=== PATIENT | male | born 1960 | race Caucasian/White ===

== ENCOUNTER 2016-11-20 10:03 | Inpatient (IN) | payer OTHER ==
--- NOTE | 2016-11-20 10:12 | EDPHY ---
H & P Stated Complaint: "I have PNA x 3 wks" Under tx;states fever last night;prod cough HPI/ROS: HPI CHIEF COMPLAINT: "I have worsening pneumonia" HISTORY OF PRESENT ILLNESS: This patient very pleasant 56-year-old male tells me that he has no significant medical or surgical history presents to the emergency room with worsening cough and shortness of breath and fever. Patient tells me he has been sick for 3 weeks with pneumonia. He was seen at [facility] diagnosed with pneumonia 2 weeks ago placed on azithromycin which he has completed the course of antibiotics and was also placed on Levaquin at that time 5:00 a.m. mg he completed that course of antibiotics and then was now put on Levaquin 750 mg daily. He tells me that last night around 8 o'clock he had a temperature of a 103degrees he has had cough with productive yellow and bloody sputum, also tells me that this morning woke up with a temperature of a 100.0 degrees. He did not take anything for his fever. Does tell me that he has worsening cough shortness of breath and is feeling worse with nausea, vomiting his breakfast this morning and diarrhea. Past Medical History: No significant medical history Past Surgical History: No significant surgical history Social History: denies daily use of drugs alcohol tobacco products, retired, [place] Family History: Noncontributory ROS REVIEW OF SYSTEMS: A comprehensive 10 point review of systems is otherwise negative aside from elements mentioned in the history of present illness. Exam Constitutional appears well nontoxic, triage nursing summary reviewed, vital signs reviewed, awake/alert. Eyes normal conjunctivae and sclera, EOMI, PERRLA. HENT normal inspection, atraumatic, moist mucus membranes, no epistaxis, neck supple/ no meningismus, no raccoon eyes. Respiratory I do not appreciate any significant abnormal lung sounds on exam, good air movement, normal cough, clear to auscultation bilaterally, normal breath sounds, no respiratory distress, no wheezing. Cardiovascular rate normal, regular rhythm, no murmur, no edema, distal pulses normal. Gastrointestinal soft, non-tender, no rebound, no guarding, normal bowel sounds, no distension, no pulsatile mass. Genitourinary no CVA tenderness. Musculoskeletal no midline vertebral tenderness, full range of motion, no calf swelling, no tenderness of extremities, no meningismus, good pulses, neurovascularly intact. Skin pink, warm, & dry, no rash, skin atraumatic. Neurologic awake, alert and oriented x 3, AAOx3, moves all 4 extremities equally, motor intact, sensory intact, CN II-XII intact, normal cerebellar, normal vision, normal speech. Psychiatric normal mood/affect. Heme/Lymph/Immune no lymphadenopathy. Differential Diagnosis: Includes but is not limited to and in no particular order: Bronchitis, viral pneumonia, bacterial pneumonia, influenza, pulmonary embolism, CHF Medical Decision Making: Plan for this patient in a IV established obtain blood work including blood cultures, influenza, patient be gently hydrated with normal saline 1 L, check inflammatory markers, patient had a CT scan angiogram of his chest for 3 weeks of worsening shortness of breath, productive cough, and bloody sputum. Need to rule out pulmonary embolism versus pneumonia versus atypical infection versus mass. Re-evaluation: EKG interpretation by me on record in [facility] system. Impression time of EKG 10:24 a.m., sinus rhythm rate of 84 no acute ischemic changes specifically no ST elevation, ST depression or significant T-wave abnormalities. Intervals appropriate. ED x-ray: Chest one view: This patient has a right lower lobe pneumonia. CT scan of the angiogram chest with IV contrast. The results of the study are multiple pulmonary emboli, segmental and subsegmental, also right lower lobe pneumonia dense infiltrate. The study was read by Dr. Rodriguez I viewed the images myself on the PACS system. 1236: Re-examination this time this patient remained stable. No acute distress. Patient be admitted for pneumonia, bilateral pulmonary emboli. I have given him Lovenox 1 bharat per kg, IV vancomycin and IV Zosyn, blood cultures have been pulled. IV fluids. He is hemodynamically stable and safe for admission to the floor med surge with pulse ox. Patient has been accepted by Dr. Woo. Source: Patient - Personal History Current Tetanus Diphtheria and Acellular Pertussis (TDAP): Yes - Medical/Surgical History Other PMH: migraines - Social History Smoking Status: Former smoker Constitutional: Initial Vital Signs Temperature (C) 36.6 C 11/20/16 10:05 Heart Rate 88 11/20/16 10:05 Respiratory Rate 18 11/20/16 10:05 Blood Pressure 115/58 L 11/20/16 10:05 O2 Sat (%) 95 11/20/16 10:05 O2 Delivery Mode Room Air Allergies/Adverse Reactions: No Known Allergies Allergy (Unverified 11/20/16 10:05) Home Medications: Medication Instructions Recorded AZITHROMYCIN [Z-PACK] 250 mg PO DAILY 11/20/16 Divalproex ER [Depakote ER 500 MG 500 mg PO 11/20/16 (*)] levOFLOXACIN [levAQUIN (*)] 500 mg PO 11/20/16 Medical Decision Making - Data Points Laboratory Results: Laboratory Results 11/20/16 10:26 11/20/16 10:26 11/20/16 11/20/16 11/20/16 10:30 10:26 10:26 WBC RBC Hgb Hct MCV MCH MCHC RDW Plt Count MPV Neut % (Auto) Lymph % (Auto) Starke % (Auto) Eos % (Auto) Baso % (Auto) Nucleat RBC Rel Count Absolute Neuts (auto) Absolute Lymphs (auto) Absolute Monos (auto) Absolute Eos (auto) Absolute Basos (auto) Absolute Nucleated RBC Immature Gran % Immature Gran # PT 16.2 SEC H SEC (12.0-15.0) INR 1.30 H (0.83-1.16) APTT 28.6 SEC SEC (23.0-38.0) D-Dimer > 20.00 ug/mLFEU H ug/mLFEU (0.00-0.50) VBG Lactic Acid Sodium 135 mEq/L mEq/L (134-144) Potassium 4.4 mEq/L mEq/L (3.5-5.2) Chloride 104 mEq/L mEq/L (97-110) Carbon Dioxide 20 mEq/l L mEq/l (22-31) Anion Gap 11 mEq/L mEq/L (8-16) BUN 11 mg/dL mg/dL (7-23) Creatinine 1.0 mg/dL mg/dL (0.7-1.3) Estimated GFR > 60 Glucose 96 mg/dL mg/dL (70-100) Calcium 8.9 mg/dL mg/dL (8.5-10.4) Total Bilirubin 0.7 mg/dL mg/dL (0.1-1.4) Conjugated Bilirubin 0.4 mg/dL mg/dL (0.0-0.5) Unconjugated Bilirubin 0.3 mg/dL mg/dL (0.0-1.1) AST 43 IU/L IU/L (17-59) ALT 42 IU/L IU/L (21-72) Alkaline Phosphatase 61 IU/L IU/L (38-126) Troponin I < 0.012 ng/mL ng/mL (0-0.034) NT-Pro-B Natriuret Pep 124 pg/mL pg/mL (0-125) Total Protein 6.9 g/dL g/dL (6.3-8.2) Albumin 3.7 g/dL g/dL (3.5-5.0) Influenza Typ A,B (DFA) NEGATIVE FOR FLU (NEGATIVE) 11/20/16 11/20/16 10:26 10:26 WBC 6.43 10^3/uL 10^3/uL (3.80-9.50) RBC 4.63 10^6/uL 10^6/uL (4.40-6.38) Hgb 14.6 g/dL g/dL (13.7-17.5) Hct 42.2 % % (40.0-51.0) MCV 91.1 fL fL (81.5-99.8) MCH 31.5 pg pg (27.9-34.1) MCHC 34.6 g/dL g/dL (32.4-36.7) RDW 12.0 % % (11.5-15.2) Plt Count 203 10^3/uL 10^3/uL (150-400) MPV 8.5 fL L fL (8.7-11.7) Neut % (Auto) 73.9 % % (39.3-74.2) Lymph % (Auto) 13.2 % L % (15.0-45.0) Starke % (Auto) 10.0 % % (4.5-13.0) Eos % (Auto) 1.6 % % (0.6-7.6) Baso % (Auto) 0.5 % % (0.3-1.7) Nucleat RBC Rel Count 0.0 % % (0.0-0.2) Absolute Neuts (auto) 4.76 10^3/uL 10^3/uL (1.70-6.50) Absolute Lymphs (auto) 0.85 10^3/uL L 10^3/uL (1.00-3.00) Absolute Monos (auto) 0.64 10^3/uL 10^3/uL (0.30-0.80) Absolute Eos (auto) 0.10 10^3/uL 10^3/uL (0.03-0.40) Absolute Basos (auto) 0.03 10^3/uL 10^3/uL (0.02-0.10) Absolute Nucleated RBC 0.00 10^3/uL 10^3/uL (0-0.01) Immature Gran % 0.8 % % (0.0-1.1) Immature Gran # 0.05 10^3/uL 10^3/uL (0.00-0.10) PT INR APTT D-Dimer VBG Lactic Acid 1.4 mmol/L mmol/L (0.7-2.1) Sodium Potassium Chloride Carbon Dioxide Anion Gap BUN Creatinine Estimated GFR Glucose Calcium Total Bilirubin Conjugated Bilirubin Unconjugated Bilirubin AST ALT Alkaline Phosphatase Troponin I NT-Pro-B Natriuret Pep Total Protein Albumin Influenza Typ A,B (DFA) Medications Given: Discontinued Medications Albuterol/Ipratropium (Duoneb) 3 ml IH EDNOW ONE Stop: 11/20/16 10:18 Last Admin: 11/20/16 10:34 Dose: 3 ml Sodium Chloride (Ns) 1,000 mls @ 0 mls/hr IV ONCE ONE PRN Reason: Wide Open Stop: 11/20/16 10:18 Last Admin: 11/20/16 10:34 Dose: 1,000 mls Departure - Departure Disposition: [facility] Inpatient Acute Clinical Impression: Pneumonia Qualifiers: Pneumonia type: due to unspecified organism Laterality: bilateral Lung location : unspecified part of lung Qualified Code(s): J18.9 - Pneumonia, unspecified organism Pulmonary emboli Qualifiers: Pulmonary embolism type: other Chronicity: acute Acute cor pulmonale presence: without acute cor pulmonale Qualified Code(s): I26.99 - Other pulmonary embolism without acute cor pulmonale Condition: Fair Referrals: VADIM KEARNS [Primary Care Provider] - As per Instructions
[2016-11-20] MEDS ORDERED: IPRATROPIUM/ALBUTEROL 3 ML DEYVIAL IH ONE (10:17)
[2016-11-20] MEDS ORDERED: NS 1,000 ML IV ONE (10:17)
--- NOTE | 2016-11-20 10:26 | CPEKG ---
Heart Rate: 84 RR Interval: 714 P-R Interval: 152 QRSD Interval: 94 QT Interval: 376 QTC Interval: 445 P [place]: 73 QRS [place]: 66 T Wave [place]: 72 EKG Severity - NORMAL ECG - EKG Impression: SINUS RHYTHM Electronically Signed By: Madhavi Walton 20-Nov-2016 23:17:54
[2016-11-20 10:37] LABS: % IMMATURE GRANULYOCYTES 0.8 % (0.0-1.1); ABSOLUTE IMMATURE GRANULOCYTES 0.05 10^3/uL (0.00-0.10); ADD DIFF? NO; ADD MORPH? NO; ADD SCAN? NO; ATYPICAL LYMPHOCYTE FLAG 10 (0-99); FRAGMENT RBC FLAG 0 (0-99); HEMATOCRIT 42.2 % (40.0-51.0); HEMOGLOBIN 14.6 g/dL (13.7-17.5); LEFT SHIFT FLG 10 (0-99); LIPEMIA HEMOLYSIS FLAG 90 (0-99); MEAN CELL HEMOGLOBIN 31.5 pg (27.9-34.1); MEAN CELL HEMOGLOBIN CONCENTR. 34.6 g/dL (32.4-36.7); MEAN CELL VOLUME 91.1 fL (81.5-99.8); MEAN PLATELET VOLUME 8.5 fL (8.7-11.7); PLATELET CLUMPS FLAG 20 (0-99); PLATELET COUNT 203 10^3/uL (150-400); RED BLOOD CELL COUNT 4.63 10^6/uL (4.40-6.38)
[2016-11-20 10:45] LABS: PROTIME(PATIENT) 16.2 SEC (12.0-15.0)
[2016-11-20 10:46] LABS: APTT 28.6 SEC (23.0-38.0)
[2016-11-20] MEDS ORDERED: IOPAMIDOL (ISOVUE 370) 100 ML BTL IV ONE (10:56)
[2016-11-20 11:16] LABS: ALANINE AMINOTRANSFERASE 42 IU/L (21-72); ALBUMIN 3.7 g/dL (3.5-5.0); ALKALINE PHOSPHATASE 61 IU/L (38-126); ANION GAP 11 mEq/L (8-16); ASPARTATE AMINOTRANSFERASE 43 IU/L (17-59); BILIRUBIN,TOTAL 0.7 mg/dL (0.1-1.4); BILIRUBIN-CONJUGATED 0.4 mg/dL (0.0-0.5); BILIRUBIN-UNCONJUGATED 0.3 mg/dL (0.0-1.1); CALCIUM 8.9 mg/dL (8.5-10.4); CARBON DIOXIDE 20 mEq/l (22-31); CHLORIDE 104 mEq/L (97-110); GLOMERULAR FILTRATION RATE > 60; GLUCOSE 96 mg/dL (70-100); POTASSIUM 4.4 mEq/L (3.5-5.2); SODIUM 135 mEq/L (134-144); TOTAL PROTEIN 6.9 g/dL (6.3-8.2)
[2016-11-20 11:25] LABS: TROPONIN I < 0.012 ng/mL (0-0.034)
[2016-11-20] MEDS ORDERED: VANCOMYCIN HCL/NORMAL SALINE 250 ML IV ONE (12:28)
[2016-11-20] MEDS ORDERED: PIPERACILLIN/TAZO 4.5 GM/DEX 100 ML IV ONE (12:28)
[2016-11-20] MEDS ORDERED: ENOXAPARIN 80 MG/0.8 ML SYR SC ONE ×2 (12:29→13:30)
[2016-11-20] MEDS ORDERED: TEMAZEPAM 15 MG CAP PO PRN (14:33)
[2016-11-20] MEDS ORDERED: ACETAMINOPHEN 325 MG TAB PO PRN (14:33)
[2016-11-20] MEDS ORDERED: oxyCODONE IR 5 MG TAB PO PRN (14:33)
[2016-11-20] MEDS ORDERED: ONDANSETRON 4 MG/2 ML VIAL IVP PRN (14:33)
[2016-11-20] MEDS ORDERED: ONDANSETRON DISINTEGRATING 4 MG TAB PO PRN (14:33)
[2016-11-20] MEDS ORDERED: AZITHROMYCIN IV 500 MG in D5W 250 ML IV SCH (15:00)
--- NOTE | 2016-11-20 17:24 | PDGENHP ---
History and Physical - Chief Complaint cough, fever, SOB - History of Present Illness 56 yo male with h/o migraine headaches and recent pneumonia presents to ED with ongoing SOB, cough and fever. He was treated initially with a Z pack, then received 500 mg oral Levaquin for 1 week. Repeat CXR at that time did not show improvement so his Levaquin dose was increased to 750 mg daily. He has received a total of 9 days of Levaquin. He felt a little better for a few days , but last night had another fever to 103, and has persistent cough productive of yellow and bloody sputum. He has been quite fatigued for the past 2 weeks and although he generally hikes 30 miles a week, he has been mostly sedentary, sleeping 12-14 hrs a day with decreased activity. He endorses SOB, denies CP. No abdominal pain, N/V/D. Denies a family h/o clotting disorder or malignancy. He has been healthy until the onset of this illness. In the ED, a d dimer was >20 and CTPA showed b/l segmental and sub-segmental PE' s along with persistent RLL PNA. He was given 1 mg/kg of Lovenox, along with a dose of Zosyn and Vancomycin. He is admitted to the hospital for further management. History Information - Allergies/Home Medication List Allergies/Adverse Reactions: No Known Allergies Allergy (Unverified 11/20/16 10:05) Home Medications: Aspirin [Aspirin 81mg (*)] 81 mg PO HS 11/20/16 [Last Taken 11/19/16] Divalproex [Depakote 125 MG (RX)] 125 mg PO DAILY 11/20/16 [Last Taken 11/19/16] Multivitamins [Multivitamin (*)] 1 each PO DAILY 11/20/16 [Last Taken Unknown] SIMVASTATIN 5 mg PO HS 11/20/16 [Last Taken 11/19/16] I have personally reviewed and updated: family history, medical history, social history, surgical history - Past Medical History hyperlipidemia, migraines - Surgical History Reports: no pertinent surgical hx - Family History Additional family history: mom had lupus, dad of emphysema - Social History Smoking Status: Former smoker Alcohol Use: Occasionally Drug Use: None Additional social history: Retired broadcast systems engineer, lives in [place]. Smoked a little bit in high school, otherwise, lifetime non-smoker. Review of Systems ROS: 10pt was reviewed & negative except for what was stated in HPI & below Physical Exam Temp Pulse Resp BP Pulse Ox 36.8 C 78 16 115/74 95 11/20/16 14:39 11/20/16 14:39 11/20/16 14:39 11/20/16 14:39 11/20/16 14:39 Constitutional: no apparent distress Eyes: PERRL Ears, Nose, Mouth, Throat: moist mucous membranes Cardiovascular: regular rate and rhythym, no murmur, rub, or gallop Respiratory: no respiratory distress, other (RLL with decreased air exchange and faint crackles) Gastrointestinal: normoactive bowel sounds, soft, non-tender abdomen Skin: warm Musculoskeletal: full muscle strength Neurologic: AAOx3 Psychiatric: interacting appropriately Lab Data & Imaging Review 11/20/16 10:26 11/20/16 10:26 WBC 6.43 10^3/uL (3.80-9.50) 11/20/16 10:26 RBC 4.63 10^6/uL (4.40-6.38) 11/20/16 10:26 Hgb 14.6 g/dL (13.7-17.5) 11/20/16 10:26 Hct 42.2 % (40.0-51.0) 11/20/16 10:26 MCV 91.1 fL (81.5-99.8) 11/20/16 10:26 MCH 31.5 pg (27.9-34.1) 11/20/16 10:26 MCHC 34.6 g/dL (32.4-36.7) 11/20/16 10:26 RDW 12.0 % (11.5-15.2) 11/20/16 10:26 Plt Count 203 10^3/uL (150-400) 11/20/16 10:26 MPV 8.5 fL (8.7-11.7) L 11/20/16 10:26 Neut % (Auto) 73.9 % (39.3-74.2) 11/20/16 10:26 Lymph % (Auto) 13.2 % (15.0-45.0) L 11/20/16 10:26 Josephine % (Auto) 10.0 % (4.5-13.0) 11/20/16 10:26 Eos % (Auto) 1.6 % (0.6-7.6) 11/20/16 10:26 Baso % (Auto) 0.5 % (0.3-1.7) 11/20/16 10:26 Nucleat RBC Rel Count 0.0 % (0.0-0.2) 11/20/16 10:26 Absolute Neuts (auto) 4.76 10^3/uL (1.70-6.50) 11/20/16 10:26 Absolute Lymphs (auto) 0.85 10^3/uL (1.00-3.00) L 11/20/16 10:26 Absolute Monos (auto) 0.64 10^3/uL (0.30-0.80) 11/20/16 10:26 Absolute Eos (auto) 0.10 10^3/uL (0.03-0.40) 11/20/16 10:26 Absolute Basos (auto) 0.03 10^3/uL (0.02-0.10) 11/20/16 10:26 Absolute Nucleated RBC 0.00 10^3/uL (0-0.01) 11/20/16 10:26 Immature Gran % 0.8 % (0.0-1.1) 11/20/16 10: Immature Gran # 0.05 10^3/uL (0.00-0.10) 11/20/16 10:26 PT 16.2 SEC (12.0-15.0) H 11/20/16 10:26 INR 1.30 (0.83-1.16) H 11/20/16 10:26 APTT 28.6 SEC (23.0-38.0) 11/20/16 10:26 D-Dimer > 20.00 ug/mLFEU (0.00-0.50) H 11/20/16 10:26 VBG Lactic Acid 1.4 mmol/L (0.7-2.1) 11/20/16 10:26 Sodium 135 mEq/L (134-144) 11/20/16 10:26 Potassium 4.4 mEq/L (3.5-5.2) 11/20/16 10:26 Chloride 104 mEq/L (97-110) 11/20/16 10:26 Carbon Dioxide 20 mEq/l (22-31) L 11/20/16 10:26 Anion Gap 11 mEq/L (8-16) 11/20/16 10:26 BUN 11 mg/dL (7-23) 11/20/16 10:26 Creatinine 1.0 mg/dL (0.7-1.3) 11/20/16 10:26 Estimated GFR > 60 11/20/16 10:26 Glucose 96 mg/dL (70-100) 11/20/16 10:26 Calcium 8.9 mg/dL (8.5-10.4) 11/20/16 10:26 Total Bilirubin 0.7 mg/dL (0.1-1.4) 11/20/16 10:26 Conjugated Bilirubin 0.4 mg/dL (0.0-0.5) 11/20/16 10:26 Unconjugated Bilirubin 0.3 mg/dL (0.0-1.1) 11/20/16 10:26 AST 43 IU/L (17-59) 11/20/16 10:26 ALT 42 IU/L (21-72) 11/20/16 10:26 Alkaline Phosphatase 61 IU/L (38-126) 11/20/16 10:26 Troponin I < 0.012 ng/mL (0-0.034) 11/20/16 10:26 NT-Pro-B Natriuret Pep 124 pg/mL (0-125) 11/20/16 10:26 Total Protein 6.9 g/dL (6.3-8.2) 11/20/16 10:26 Albumin 3.7 g/dL (3.5-5.0) 11/20/16 10:26 Influenza Typ A,B (DFA) NEGATIVE FOR FLU (NEGATIVE) 11/20/16 10:30 Assessment & Plan Assessment: B/L Pulmonary emboli (Acute) - Class II Pesi, low risk. No hypoxemia, tachycardia or hypotension. LE U/S is positive for DVT, likely source of PE. This may be provoked given his decreased mobility in setting of recent illness. However, recommend he have outpt f/u with Hematology to discuss duration of therapy and if further testing for hypercoagulable state is indicated. -Lovenox 1 mg/kg BID -Start Coumadin, discussed monitoring and bleeding risk of anticoagulation -echo to evaluate for right heart strain -monitor on telemetry Pneumonia (Acute) - He has had what seems to be adequate treatment for CAP with 9 days of Levaquin and Azithromycin. He has no risk factors for MDR organisms. He is afebrile here and has no leukocytosis. -will treat with Ceftriaxone for now given recurrent fever (though PE could cause fever) -await BCx's -obtain sputum culture Migraine headaches - takes Depakote for prevention Full code Dispo - inpatient, will likely require >48 hrs hospitalization for ongoing management of his PE and PNA
[2016-11-20] MEDS: DIVALPROEX NA 125 MG TAB PO SCH (17:30)
[2016-11-20] MEDS ORDERED: WARFARIN SODIUM 5 MG TAB PO ONE (18:00)
[2016-11-20] MEDS: ENOXAPARIN 80 MG/0.8 ML SYR SC SCH (22:34)
[2016-11-21 05:20] LABS: INR 1.34 (0.83-1.16); PROTIME(PATIENT) 16.6 SEC (12.0-15.0)
[2016-11-21 05:23] LABS: ANION GAP 7 mEq/L (8-16); CALCIUM 8.2 mg/dL (8.5-10.4); CARBON DIOXIDE 22 mEq/l (22-31); CHLORIDE 109 mEq/L (97-110); CREATININE 0.9 mg/dL (0.7-1.3); GLOMERULAR FILTRATION RATE > 60; GLUCOSE 85 mg/dL (70-100); POTASSIUM 4.4 mEq/L (3.5-5.2); SODIUM 138 mEq/L (134-144)
--- NOTE | 2016-11-21 08:26 | ECHO ---
[id number] + + [address] : : [place] [address] : : [phone] + Adult Echocardiographic Report + -----+ :Name: JACINTO FERGUSON Rubin Date: 11/20/2016 03:59 PM : : Hospital Admission Number: [id number] Location : 205: :: 1960 Gender: Male Height: 75 in : :Age: 56 yrs Race: WH Weight: 182 lb : :Reason For Study: PE/Eval for right heart strain : : BSA: 2.1 meters2 : + -----+ MMode/2D Measurements \T\ Calculations IVSd: 0.46 cm LVIDd: 5.4 cm FS: 38.0 % Ao root diam: LVPWd: 0.95 cm LVIDs: 3.4 cm EDV(Teich): 3.7 cm 144.0 ml LA dimension: ESV(Teich): 3.6 cm 46.7 ml EF(Teich): 67.6 % LVLd ap4: 7.9 cm SV(MOD-sp4): EDV(MOD-sp4): 54.0 ml 83.0 ml LVLs ap4: 6.5 cm ESV(MOD-sp4): 29.0 ml EF(MOD-sp4): 65.1 % Normal Measurement Values: + + :LVIDd (3.5-5.7cm) IVSd (0.6-1.1cm) LVPWd (0.6-1.1cm) Aortic Root (2.0-3.7cm)Left Atrium (1.5-4.0cm): :LV Vol(d) (76-115ml) LV Vol(s) (29-48ml) Ejec Fraction (50-65%)PV Dm (0.6- 1.2m/s) TV Dm (0.4-1.0m/s) : :MV E Dm (0.8-1.0m/s)MV A Dm (0.3-1.0m/s)LVOT Dm (0.7-1.2m/s) Asc Ao Dm ( 0.9-1.8m/s) : + + Doppler Measurements \T\ Calculations MV E max dm: 68.1 cm/sec Ao V2 max: 97.7 cm/sec MV A max dm: 46.4 cm/sec Ao max P.8 mmHg MV E/A: 1.5 Left Ventricle The left ventricle is normal in size. There is normal left ventricular wall thickness. Left ventricular systolic function is normal. Ejection Fraction = 60-65%. No regional wall motion abnormalities noted. Right Ventricle The right ventricle is normal in size and function. Atria The left atrial size is normal. Right atrial size is normal. The interatrial septum is intact with no evidence for an atrial septal defect. Mitral Valve The mitral valve is normal in structure and function. There is no evidence of mitral valve prolapse. There is no mitral valve stenosis. Tricuspid Valve Normal tricuspid valve. There is trace tricuspid regurgitation. RVSP is low (not even measurable). Aortic Valve The aortic valve opens well. There is no aortic stenosis. There is no aortic insufficiency. Pulmonic Valve The pulmonic valve is not well visualized. There is no pulmonic valvular regurgitation. Great Vessels The aortic root is normal size. Pericardium/Pleural There is no pericardial effusion. Conclusion A complete two-dimensional transthoracic echocardiogram was performed (2D, M-mode, Doppler and color flow Doppler). Left ventricular systolic function is normal. Ejection Fraction = 60-65%. The right ventricle is normal in size and function. There is trace tricuspid regurgitation. RVSP is low (not even measurable). Final Reading Physician: Rafaela Leos signed on 11/21/2016 08:25 AM Ordering Physician: Rosy Huertas Performed By: Gisselle Spencer, KALANICS
[2016-11-21] MEDS: ENOXAPARIN 80 MG/0.8 ML SYR SC SCH ×2 (08:57→19:58)
[2016-11-21] MEDS: DIVALPROEX NA 125 MG TAB PO SCH (09:04)
[2016-11-21] MEDS ORDERED: IPRATROPIUM/ALBUTEROL 3 ML DEYVIAL IH PRN (14:59)
[2016-11-21] MEDS ORDERED: WARFARIN SODIUM 5 MG TAB PO ONE (16:00)
--- NOTE | 2016-11-21 16:24 | HOSPPROG ---
Hospitalist Progress Note Assessment/Plan: RLL PNA - s/p tx course with Levaquin and Azithro, though presented with recurrent fever (?due to PE). -Continue Ceftriaxone, step down to Cefpodoxime at d/c for possible treatment failure given recurrent fever -Needs f/u chest CT in 4-6 weeks to ensure resolution and r/o mass B/L PE - Class II PESI, low risk. +LE DVT source. More hypoxemic today, 90% on room air and he lives [place],500 [place] elevation. No right heart strain on echo, no tachycardia. -Continue Lovenox and Coumadin -Possible d/c tomorrow, keep one more day to ensure sats improved as he'll be more hypoxemic at elevation -Outpt heme f/u to consider need for hypercoagulable w/u. Suspect this is provoked in setting of decreased mobility during illness. Full code Dispo - cont inpt, likely d/c tomorrow if sats improved Subjective: Pt continues to feel fatigued, but denies fevers/chills, CP or SOB. He is more hypoxic today, but remains on room air. Eating well. No complaints. Objective: Vital Signs Temp Pulse Resp BP Pulse Ox 36.8 C 66 16 106/60 91 L 11/21/16 16:00 11/21/16 16:00 11/21/16 16:00 11/21/16 16:00 11/21/16 16:00 Laboratory Results 11/21/16 04:10 11/20/16 11/21/16 11/22/16 05:59 05:59 05:59 Intake Total 1480 Balance 1480 PT 16.6 SEC (12.0-15.0) H 11/21/16 04:10 INR 1.34 (0.83-1.16) H 11/21/16 04:10 - Physical Exam Constitutional: no apparent distress Eyes: PERRL Ears, Nose, Mouth, Throat: moist mucous membranes Cardiovascular: regular rate and rhythym, no murmur, rub, or gallop Respiratory: no respiratory distress, clear to auscultation Gastrointestinal: normoactive bowel sounds, soft, non-tender abdomen Skin: warm Musculoskeletal: full muscle strength Neurologic: AAOx3 Psychiatric: interacting appropriately ICD10 Worksheet Patient Problems: Problems Problem Status Onset Pneumonia Acute Pulmonary emboli Acute
[2016-11-21 19:59] VITALS: RESP 18
[2016-11-21] MEDS ORDERED: PRAVASTATIN SODIUM 10 MG TAB PO SCH (21:00)
[2016-11-22 06:36] LABS: INR 1.19 (0.83-1.16); PROTIME(PATIENT) 15.1 SEC (12.0-15.0)
[2016-11-22 08:37] VITALS: BP 109/63; PULSE 92; TEMP 97.9; O2SAT 92
[2016-11-22] MEDS: DIVALPROEX NA 125 MG TAB PO SCH (09:04)
[2016-11-22] MEDS: ENOXAPARIN 80 MG/0.8 ML SYR SC SCH (09:04)
--- NOTE | 2016-11-22 21:29 | GDS ---
[f rep st] DISCHARGE SUMMARY DISCHARGE DIAGNOSES: 1. Acute hypoxemic respiratory failure secondary to pneumonia and bilateral pulmonary emboli. 2. Right lower lobe pneumonia. 3. Bilateral pulmonary emboli. Class 2 Pulmonary Embolism Severity Index. 4. Right lower extremity deep venous thrombosis. CONSULTANTS: None. HISTORY: For details please see the history and physical dated November 20, 2016. In brief, the patie linda is a 56-year-old male with a history of migraine headaches who presented to the emergency departm ent with shortness of breath, cough, and fever. He has previously treated as an outpatient for pneu monia with a Z-Zeus followed by 1 week of Levaquin. He felt a little better, but then developed a fe ronal to 103 and presented to emergency department where he was diagnosed with persistent right lower lobe pneumonia and bilateral pulmonary emboli. He was admitted to the hospital for further manageme nt. In the emergency department, the patient was found to have an elevated D-dimer and a CT pulmona ry angiogram was performed, which revealed moderate volume bilateral segmental and subsegmental pulm onary emboli. In addition, a right lower lobe pneumonia was again noted, as well as right perihilar and mediastinal lymphadenopathy possibly reactive secondary to the pneumonia. His INR remained sub therapeutic at the time of discharge. He is given a prescription for Lovenox and underwent teaching for self administration. He is instructed to continue Lovenox for a minimum of 5 days overlapping with Coumadin and until his INR is therapeutic between 2-3. I discussed the case with Dr. De La Vega w ho agrees to see the patient in outpatient Hematology Clinic. I suspect this is a provoked event gi aly his DVT in the setting of decreased mobility over the past several weeks during his acute illnes s. However, I recommend the patient have outpatient followup with Hematology to discuss the indicat ion for hypercoagulable workup. Dr. De La Vega also kindly agreed to have his office manage his Coumad in, therefore, the patient will return to the [facility] tomorrow for an INR draw with results sent to Dr. De La Vega's office. The patient will schedule an appointment at [facility] [[email or web address]] this coming week. He had a Class 2 PESI score, which is low risk for mortality. He wa s not hypoxemic, tachycardic, and had no hypotension. He was initially treated with Lovenox 1 mg/kg b.i.d. and Coumadin was also started. After discussing risks and benefits of anticoagulation patie nt agreed. An echocardiogram was performed. It did not reveal any evidence of right heart strain. He did become mildly hypoxemic with oxygen saturation of 90% on room air. He was kept 1 additional day due to this, [place] [address] [place]. He is ultimately discharged home on home oxyg en until he follows up with his primary care physician, as he will likely be more hypoxemic at eleva tion. With respect to his pneumonia, it is unclear if he failed outpatient treatment, as his presen ting symptoms may have all been related to pulmonary embolism, which can also cause fevers. He was treated with 3 days of IV ceftriaxone and is sent home with 4 more days of oral cefpodoxime to compl ete 1 week treatment course of 3rd generation cephalosporin. He has already received 1.5 g of azith romycin, so this was deferred. He remained afebrile throughout his hospitalization. I discussed wi th the patient the importance of repeat chest CT imaging in 6-8 weeks to ensure resolution of his ri ght lower lobe pneumonia and rule out mass. The patient has negative blood cultures to date. A spu atiya culture was also obtained, which preliminarily is showing mixed oropharyngeal radha. DISPOSITION: Patient is discharged home in stable condition. DISCHARGE MEDICATIONS: Please see [employer] for complete updated outpatient medication list. New medications on discharge include: 1. Warfarin. He is instructed to take 7.5 mg today and have an INR drawn tomorrow, and further dos ing per Dr. De La Vega's office. 2. Lovenox 80 mg subcutaneous b.i.d. to overlap with Coumadin for a minimum of 5 days. He may disc ontinue this once his INR is between 2 and 3. 3. Cefpodoxime 200 mg p.o. b.i.d. #8 no refills. 4. Albuterol 2 puffs inhaled q.4 hours p.r.n. Discontinued medication aspirin is discontinued, as he is starting on anticoagulation to reduce blee ding risk. FOLLOWUP: 1. [facility] for consideration of hypercoagulable workup. 2. Dr. Dale Daniel primary care physician. 3. Final blood cultures and sputum cultures are pending. 4. He needs a followup chest CT in 6-8 weeks to ensure resolution of his right lower lobe pneumonia . 5. INR tomorrow, results to Dr. De La Vega's office. /[id number]/MODL
== END 2016-11-22 12:04 | disposition home or self-care (01) | DRG 175 ==
LOC: F2W 15:58
PROVIDERS: ADMIT Internal Medicine; ATTEND Hospitalist
DX: I26.99 Other pulmonary embolism without acute cor pulmonale (principal); J18.9 Pneumonia, unspecified organism; J96.01 Acute respiratory failure with hypoxia; I82.4Z1 Acute embolism and thrombosis of unspecified deep veins of right distal lower extremity
CPT/HCPCS: 96374; J0456; J0696; J1650; J2543; J3370; Q9967